=== PATIENT | female | born 2000 | race Two or more races ===

== ENCOUNTER → 2021-05-31 11:46 | Outpatient (CLI) | payer OTHER, SELFPAY ==
--- NOTE | ~2021-05-31 | XR_ITS ---
EXAMINATION: XR chest 2V EXAM DATE: 05/31/2021 12:03 INDICATION: Chronic cough TECHNIQUE: Frontal and lateral projections of the chest obtained and reviewed. There is no prior maria l dy for comparison. FINDINGS: The lungs are clear. There are no pleural effusions. The cardiomediastinal silhouette is within normal limits. There is no pneumothorax suspected. The bones and soft tissues are unremarkab le. IMPRESSION: Normal chest x-ray exam. Reviewed, dictated and finalized at location A. AL WINDER IMPRESSION: Normal chest x-ray exam.
== END ==
PROVIDERS: PCP Internal Medicine; Visit Provider Internal Medicine
DX: R05.3 Chronic cough (principal)
CPT/HCPCS: 71046